=== PATIENT | male | born 1935 | race Caucasian/White ===

== ENCOUNTER 2016-03-07 12:17 | Day surgery (SDC) | payer MEDICARE ==
[2016-03-07] VITALS (7 sets, daily range): BP systolic 120–130; BP diastolic 72–76; PULSE 68–78; RESP 12–16; O2SAT 95–98
[~2016-03-07] VITALS: Ht 177.8 cm; Wt 85.3 kg
[~2016-03-07 12:17] MED LIST: CeFAZolin 2 Gm/50 mL D5W IV Premix IV ONE; Lactated Ringer's 1,000 ML IV ONE; METF500T4 PO; SIMV40TA5 PO
[2016-03-07] MEDS ORDERED: Propofol 10,000 mCg/mL 20 mL Inj ONE (12:18)
[2016-03-07] MEDS ORDERED: CeFAZolin 2 Gm/50 mL D5W Duplex Bag IV ONE (12:18)
[2016-03-07] MEDS ORDERED: fentaNYL-PF 50 mCg/mL 2 mL Inj ONE (12:18)
[2016-03-07] MEDS ORDERED: Ondansetron 2 mg/mL 2 mL Inj ONE (12:18)
[2016-03-07] MEDS ORDERED: Lactated Ringer's 1,000 ML IV SCH (13:53)
[2016-03-07] MEDS ORDERED: Lactated Ringer's 500 ML IV PRN (13:53)
[2016-03-07] MEDS ORDERED: Dexamethasone 4 mg/mL Inj IVPUSH PRN (13:55)
[2016-03-07] MEDS ORDERED: HYDROmorphone 1 mg/mL Inj IVPUSH PRN (13:55)
[2016-03-07] MEDS ORDERED: MetoCLOpramide 5 mg/mL 2 mL Inj IVPUSH PRN (13:55)
[2016-03-07] MEDS ORDERED: Ondansetron 2 mg/mL 2 mL Inj IVPUSH PRN (13:55)
[2016-03-07] MEDS ORDERED: fentaNYL-PF 50 mCg/mL 2 mL Inj IVPUSH PRN (13:55)
[2016-03-07] MEDS ORDERED: Phenylephrine 10,000 mCg/mL Inj IVPUSH PRN (13:55)
[2016-03-07] MEDS ORDERED: EPHEDrine Sulfate 50 mg/mL Inj IVPUSH PRN (13:55)
[2016-03-07] MEDS ORDERED: HYDROcodone-APAP 5-325 mg Tablet PO PRN (14:40)
--- NOTE | 2016-03-07 15:12 | PCM.HPANE ---
Patient Data Surgeon Admitting Provider: Attending Provider:Nan Rodgers MD Primary Care Physician:Singh Overton MD Other Provider:[facility] Reason for Visit Gross Hematuria Ht/WT & BMI Height (Feet): 5 Height (Inches): 10 Weight (Kilograms): 84 Body Mass Index 26.00 Allergies Coded Allergies: No Known Allergies (Unverified , 03/07/16) Diabetes History Hx Diabetes?: Yes Type of Diabetes: Type II Glycemic Control: Oral Medication Medications Hypertension Medication: Yes Home Meds Incl Beta Delfino: Yes Reported Medications Simvastatin 40 Mg [id number] Mg PO HS 30 Days Ref 0 03/04/16 Metformin 500 Mg [id number] Mg PO BID Ref 0 03/04/16 History History of ENT Problems?: No Hx of Heart Problems?: No Hx of Respiratory Problem?: No Respiratory History: Denies:: Oxygen Administration Use of C-PAP Machine Hx Neurologic Problems?: No Hx of GI Problems?: No Hx of Problems?: Yes Other Pertinent History: hematuria, bladder neck tumor current admission problem Male Hx: Denies:: Prostate Problems Hx Musculoskeletal Problems?: No Hx of Psycho/Social Problems?: No Hx Surgeries?: No (unknown) Hx Any Other Health Problems?: No Other History: Denies:: Cancer Thyroid Disease Hx Diabetes: Yes Hx Substance Use: No Stop/Bang S-Snoring: Do You Snore Loudly: No T-Tired: feel tired, fatigued: No O-Obsered: Observed not breath: No P-Blood Pressure: treated: No B- Body Mass Index > 35 kg/m2: No A- Age over 50: Yes N- Neck Large Circumference: No G- Gender Male: Yes LUIS Total Score: 2 Risk Assessment Category Category 1A: Patient has history of documented sleep apnea, and HAS NOT received any narcotic, sedative or anesthesia administration during this stay. Category 1B: Patient has history of documented sleep apnea, and HAS received any narcotic , sedative or anesthesia administration during this stay Category 2: Patient has SUSPECTED Obstructive Sleep Apnea, and HAS received any narcotic , sedative or anesthesia administration during this stay. Category 3: Patient has SUSPECTED Obstructive Sleep Apnea and HAS NOT received narcotic, sedative or anesthesia administration during this stay. Category 4: Outpatient in Procedural Areas with known sleep apnea or who screen positive for High Risk via the STOP/BANG questionnaire. Exam Exam General Appearance: Alert, Oriented X3, Cooperative, No Acute Distress HEENT/AIRWAY: MP 2 Lungs: Clear to Auscultation Heart: Exam Unremarkable Plan Impression Patient chart reviewed, patient interviewed and anesthestic plan with risks, benefits, and alternatives discussed, and informed consent obtained. ASA Physical Status: ASA2 Mod Systemic Disease Anesthetic Plan: GA Bene/Risks/Altern/Consents: Yes HP Complete Prior to Induction: Yes Ricardo Rodriguez MD Mar 07, 2016 07:18
--- NOTE | 2016-03-07 15:13 | PCM.ANEP1 ---
Post Anesthesia Phase 1 PACU Phase 1 Assessment Vital Signs Vital Signs Date Time Temp Pulse Resp B/P Pulse Ox O2 Delivery O2 Flow Rate FiO2 03/07/16 15:00 71 12 126/73 95 Room Air 03/07/16 14:55 73 13 123/72 95 Room Air 03/07/16 14:50 73 15 120/74 95 Room Air 03/07/16 14:43 36.8 78 12 130/73 96 Room Air 03/07/16 12:42 36 68 16 124/72 98 Room Air Anesthetic Administered: GA Level of Alertness: Sleepy, easy to arouse SANFORD's with Equal Strength: Yes Pain: No Nausea or Vomiting: No Oxygen Delivery: Room Air Lungs: Clear to Auscultation Dermatome Level: Full Sensation Ricardo Rodriguez MD Mar 07, 2016 15:13
--- NOTE | 2016-03-07 15:14 | PCM.ANEP2 ---
Post Anesthesia Evaluation ASA/CMS Post Anesthesia VS in Patient's Normal Range?: Yes Resp Stable; Airway Patent?: Yes CV Function & Hydration Stable: Yes Mental Status Recovered?: Yes Pain control Satisfactory?: Yes N/V Control Satisfactory?: Yes Ricardo Rodriguez MD Mar 07, 2016 15:14
--- NOTE | 2016-03-08 02:19 | OP ---
[address] [address] OPERATIVE REPORT PATIENT: RAUL MATOS : 1935 MR#: [id number] ADMIT: 03/07/2016 JOB ID: [id number] DATE OF SURGERY: 03/07/2016 PREOPERATIVE DIAGNOSIS(ES): Bladder tumors. POSTOPERATIVE DIAGNOSIS(ES): Bladder tumors. PROCEDURE PERFORMED: 1. Pelvic exam under anesthesia. 2. Cystoscopy and panendoscopy. 3. TURBT (4 cm). 4. Transurethral resection of prostate. SURGEON: Nan Rodgers MD COSTING ANALYST: None. FINDINGS: 1. Pelvice exam reveals mobile bladder without fixed masses and smooth prostate without nodules. 2. A +2 trabeculated bladder. 3. Ureteral orifices in close proximity to the bladder neck, with the right ureteral orifice somewhat medially displaced. 4. Papillary bladder tumors surrounding almost the entire circumference of the bladder neck, with innumerable small papillary bladder tumors at the bladder base. ANESTHESIA: General. ESTIMATED BLOOD LOSS: Less than 5 mL. DRAINS: 18 coude Saavedra catheter to the bladder. SPECIMENS: 1. Bladder tumor. 2. Prostate chips. COMPLICATIONS: None. CONDITION: Stable. INDICATION FOR PROCEDURE: The patient is an 80-year-old gentleman who now presents for transurethral resection of bladder tumor after in-clinic cystoscopy demonstrated multiple bladder tumors. Given the proximity of the bladder tumors, that being at the bladder neck, the patient was consented for a transurethral resection of prostate for adequate staging. DESCRIPTION OF PROCEDURE: After informed consent was obtained, the patient was taken to the operating room. A time-out was performed, identifying correct patient, surgical site, and procedure. General anesthesia was smoothly induced. He was given intravenous antibiotics just prior to the start of procedure. He was placed in lithotomy position and all pressure points were identified and appropriately padded. A bimanual pelvic exam was performed. The findings were aforementioned. His genitals were then prepped and draped in the usual sterile fashion. A 22-Croatian cystoscope was then applied to the patient's urethra and advanced to the bladder. The bladder was drained. The bladder was systematically inspected with both 30 and 70 degree lenses. The entirety of the bladder base was quite hypervascular. The bladder neck was almost circumferentially involved with papillary tumor. The ureteral orifices took some time to identify because they were not in orthotopic position. The right ureteral orifice was in close proximity to the bladder neck and medially displaced. The left ureteral orifice was seen in a bit more orthotopic position, but it was also in close proximity to the bladder neck. The left ureteral orifice was not involved with tumor, though the right was. Just within the introitus of the ureteral orifice, there could be seen tumor there. Resection commenced along the base. Those papillary tumors were quite small and could simply be scraped off with a cold loop. The loop was then used to cauterize a good amount at the base given the involvement of the small papillary tumors there. Attention was then turned to the bladder neck and tumors were resected in piecemeal fashion around the circumference of the bladder neck. There was also seen a tumor involving the right ureteral orifice which was scraped off as well. The bladder tumor specimen was then removed through the resectoscope. Attention was then turned to the prostate. The Thunderbeat was then set to TURP settings. The prostate was then resected from the bladder neck to the proximal to the verumontanum working from the right lobe to the left lobe, and these were passed off the table as prostate chips to Pathology. The bladder was then drained and reinspected multiple times. Cautery was used in spot fashion for hemostasis. At the end of the procedure, there was excellent hemostasis. An 18-Croatian coude catheter was placed in the patient's bladder and set to dependent drainage. The patient was then reversed from general anesthesia and taken to the PACU in good and stable condition. BRENDA
--- NOTE | 2016-03-09 13:48 | PATH ---
SURGICAL PATHOLOGY Attending Physician:Nan Rodgers, CASE STATUS: Signed Out PATIENT NAME: RAUL MATOS PID: [id number] : 1935 DATE COLLECTED:03/07/2016 22:53 SPECIMEN: 1: Bladder, Biopsy 2: Prostate, Chips CLINICAL HISTORY: GROSS HEMATURIA *WOULD LIKE TO KNOW IF SPECIMEN FROM PROSTATE HAS BLADDER TUMOR PRESENT (BLADDER TUMOR WAS PRESENT MOSTLY AT BLADDER NECK-TURP DONE FOR STAGING) 1. BLADDER TUMOR 2. PROSTATE CHIPS FINAL DIAGNOSIS: 1. Transurethral Resection of Bladder Tumor: Papillary urothelial carcinoma high grade, focally invasive into lamina propria. Muscularis propria tissue present and negative for neoplasm. 2. Prostate Chips: Fragments of prostate tissue negative for malignancy. Pathologic stage of bladder tumor based on TUR: pT1, pNX. ICD10 C67.9 NOTE: Case reviewed by Dr. Garry Matos who agrees with the diagnosis. GROSS DESCRIPTION: The specimen is received in two formalin filled containers labeled with the patient's name. 1). Specimen a sublabeled "bladder tumor" and consists of multiple portions of tissue which aggregate to 1.5 x 1.5 x 0.3 CM. The specimen is filtered and entirely submitted in cassette 1A. 2). The specimen is sublabeled "prostate chips" and consists of multiple portions of pink-wheeler tissue which aggregate to 1.5 x 1.0 x 0.5 CM. The specimen is entirely submitted in cassette 2A. Specimen weighs 0.3 g in total. 03/07/2016 [facility] ICD-9 CODES: CPT CODES: 1: 86372 2: 09781 Electronically Signed Out Eliceo Robertson MD [facility] Pathology [facility] [address], [place] [address] Technical component performed at [facility], [facility] [address], [place], [address]
[2016-06-09] MEDS ORDERED: METF500T4 PO (15:37)
[2016-06-09] MEDS ORDERED: RANI150T11 PO (15:37)
[2016-06-09] MEDS ORDERED: SIMV20TA4 PO (15:37)
== END 2016-03-07 23:59 | disposition home or self-care (01) ==
LOC: SAS 12:17
PROVIDERS: ATTEND Urology
DX: C67.5 Malignant neoplasm of bladder neck (principal); N32.89 Other specified disorders of bladder; I10 Essential (primary) hypertension; E11.9 Type 2 diabetes mellitus without complications; Z79.84 Long term (current) use of oral hypoglycemic drugs
CPT/HCPCS: 52235; 52601; J0690; J2405; J7120

== ENCOUNTER 2016-06-13 05:36 | Day surgery (SDC) | payer MEDICARE ==
[2016-06-13] VITALS (8 sets, daily range): BP systolic 117–136; BP diastolic 71–87; PULSE 64–76; RESP 10–23; O2SAT 96–100
[~2016-06-13] VITALS: Ht 175.3 cm; Wt 89.0 kg
[~2016-06-13 05:36] MED LIST changes: -CeFAZolin 2 Gm/50 mL D5W IV Premix IV ONE; +RANI150T11 PO; +SIMV20TA4 PO; -SIMV40TA5 PO
[2016-06-13] MEDS ORDERED: Propofol 10,000 mCg/mL 20 mL Inj ONE (05:37)
[2016-06-13] MEDS ORDERED: Ondansetron 2 mg/mL 2 mL Inj ONE (05:37)
[2016-06-13] MEDS ORDERED: fentaNYL-PF 50 mCg/mL 2 mL Inj ONE (05:37)
[2016-06-13] MEDS ORDERED: LUTE20CA8 PO (06:00)
[2016-06-13] MEDS: CeFAZolin Inj 2 GM in IV Premix 1 EACH IV SCH ×2 (06:16→07:17)
--- NOTE | 2016-06-13 06:38 | PCM.HPANE ---
Patient Data Surgeon Admitting Provider: Attending Provider:Nan Rodgers MD Primary Care Physician:Singh Overton MD Other Provider:[facility] Reason for Visit Bladder Tumor Ht/WT & BMI Height (Feet): 5 Height (Inches): 9 Weight (Kilograms): 89 Body Mass Index 29.00 Allergies Coded Allergies: No Known Allergies (Unverified , 06/13/16) Past Anesthesia History Anesthesia History: Denies:: Abnormal Airway, Anesthesia Reactions, Difficult Intubation, Fam Anesthesia Reaction, Fam Malignant Hypertherm, Malignant Hyperthermia Diabetes History Hx Diabetes?: Yes Type of Diabetes: Type II Glycemic Control: Oral Medication Current Bedside Blood Glucose: 145 MRSA MRSA: No Medications Hypertension Medication: No Home Meds Incl Beta Delfino: No Reported Medications Lutein 20 Mg [id number] Mg PO BID 06/13/16 Ranitidine (Zantac)150 Mg [id number] Mg PO DAILY 06/09/16 Simvastatin 20 Mg Kmsfzp85 Mg PO HS Ref 0 06/09/16 Metformin 500 Mg [id number] Mg PO BID Ref 0 06/09/16 Discontinued Reported Medications Simvastatin 40 Mg Nbtyjr54 Mg PO HS 30 Days Ref 0 03/04/16 Metformin 500 Mg [id number] Mg PO BID Ref 0 03/04/16 History History of ENT Problems?: No HEENT History: Denies:: Abnormal Airway Cataracts Difficult Intubation Dysphagia Glaucoma Hearing Problem Sinus Problem TMJ Denture Type: Partial- Upper Partial- Lower Teeth Condition: Within Normal Limits Hx of Heart Problems?: No Cardiovascular History: Denies:: AICD Abdominal Aortic Aneurism Atrial Fibrillation Cardiac Surgery Chest Pain Congestive Heart Failure Coronary Artery Disease Edema Heart Murmur Hypertension Irregular Heartbeat Pacemaker Peripheral Vascular Rheumatic Fever Thrombophlebitis Valvular Heart Disease Hx of Respiratory Problem?: No Respiratory History: Denies:: Asthma COPD Emphysema Oxygen Administration Use of C-PAP Machine Hx Neurologic Problems?: No Hx of GI Problems?: No Hx of Problems?: Yes Genitourinary History: Denies:: Kidney Stones Urinary Tract Infection Other Pertinent History: bladder tumor current admission problem Male Hx: Positive for:: Prostate Problems (hx of staging TURP 02/2016) Hx Musculoskeletal Problems?: No Hx of Psycho/Social Problems?: No Hx Surgeries?: Yes (turbt, staging TURP) Hx Any Other Health Problems?: Yes Other History: Positive for:: Cancer (bladder tumor) Denies:: Thyroid Disease Hx Diabetes: YesBedside Blood Glucose: 145 Hx Substance Use: No Smoking Status: Never Smoker Have You Smoked inLast 12 mo: No Stop/Bang S-Snoring: Do You Snore Loudly: No T-Tired: feel tired, fatigued: No O-Obsered: Observed not breath: No P-Blood Pressure: treated: No B- Body Mass Index > 35 kg/m2: No A- Age over 50: Yes N- Neck Large Circumference: No G- Gender Male: Yes LUIS Total Score: 2 Risk Assessment Category Category 1A: Patient has history of documented sleep apnea, and HAS NOT received any narcotic, sedative or anesthesia administration during this stay. Category 1B: Patient has history of documented sleep apnea, and HAS received any narcotic , sedative or anesthesia administration during this stay Category 2: Patient has SUSPECTED Obstructive Sleep Apnea, and HAS received any narcotic , sedative or anesthesia administration during this stay. Category 3: Patient has SUSPECTED Obstructive Sleep Apnea and HAS NOT received narcotic, sedative or anesthesia administration during this stay. Category 4: Outpatient in Procedural Areas with known sleep apnea or who screen positive for High Risk via the STOP/BANG questionnaire. Exam Exam Vital Signs Vital Signs Date Time Temp Pulse Resp B/P Pulse Ox O2 Delivery O2 Flow Rate FiO2 06/13/16 06:04 36.7 76 16 124/76 97 Room Air General Appearance: Alert, Oriented X3, Cooperative, No Acute Distress HEENT/AIRWAY: MP 2, Neck Movement (50% expected ROM), Mouth Opening (wnl) Lungs: Clear to Auscultation Heart: Exam Unremarkable Meds/Labs/Diagnostics Admission Meds Current Medications Cefazolin Sodium/ Dextrose 2 gm/ Premix 50 ml @ 100 mls/hr PREOP IV Last administered on 06/13/16 06:16; Start 06/13/16 at 06:00; Stop 06/13/16 at 19:00 Lactated Ringer's (Lr) 1,000 ml @ 120 mls/hr [id number] ONCE IV Last administered on 06/13/16 06:16; Start 06/13/16 at 05:00; Stop 06/13/16 at 13:19 Bedside Blood Glucose: 145 Plan Impression Patient chart reviewed, patient interviewed and anesthestic plan with risks, benefits, and alternatives discussed, and informed consent obtained. ASA Physical Status: ASA2 Mod Systemic Disease Anesthetic Plan: GA Bene/Risks/Altern/Consents: Yes HP Complete Prior to Induction: Yes Jc Burch MD June 13, 2016 06:38
[2016-06-13] MEDS ORDERED: Lactated Ringer's 1,000 ML IV SCH (07:23)
[2016-06-13] MEDS ORDERED: Lactated Ringer's 500 ML IV PRN (07:23)
[2016-06-13] MEDS ORDERED: HYDROmorphone 1 mg/mL Inj IVPUSH PRN (07:25)
[2016-06-13] MEDS ORDERED: Labetalol 5 mg/mL 4 mL Inj IV PRN (07:25)
[2016-06-13] MEDS ORDERED: Phenylephrine 10,000 mCg/mL Inj IVPUSH PRN (07:25)
[2016-06-13] MEDS ORDERED: Dexamethasone 4 mg/mL Inj IVPUSH PRN (07:25)
[2016-06-13] MEDS ORDERED: Ondansetron 2 mg/mL 2 mL Inj IVPUSH PRN (07:25)
[2016-06-13] MEDS ORDERED: EPHEDrine Sulfate 50 mg/mL Inj IVPUSH PRN (07:25)
[2016-06-13] MEDS ORDERED: hydrALAZINE 20 mg/mL Inj IVPUSH PRN (07:25)
[2016-06-13] MEDS ORDERED: Atropine 0.4 mg/mL Inj IVPUSH PRN (07:25)
[2016-06-13] MEDS ORDERED: fentaNYL-PF 50 mCg/mL 2 mL Inj IVPUSH PRN (07:25)
[2016-06-13] MEDS ORDERED: HYDROcodone-APAP 5-325 mg Tablet PO PRN (08:30)
--- NOTE | 2016-06-13 08:46 | PCM.ANEP1 ---
Post Anesthesia Phase 1 PACU Phase 1 Assessment Vital Signs Vital Signs Date Time Temp Pulse Resp B/P Pulse Ox O2 Delivery O2 Flow Rate FiO2 06/13/16 08:40 64 10 118/71 96 Room Air 06/13/16 08:30 36.8 65 12 120/71 97 Room Air 06/13/16 08:25 66 11 119/72 96 Room Air 06/13/16 08:20 68 12 117/76 97 Room Air 06/13/16 08:15 68 13 122/73 99 Simple Mask 8 06/13/16 08:09 37.0 65 12 122/77 100 Simple Mask 8 06/13/16 06:04 36.7 76 16 124/76 97 Room Air Anesthetic Administered: GA Level of Alertness: Awake, talking SANFORD's with Equal Strength: Yes Pain: No Nausea or Vomiting: No Cardiovascular Function and Hy: Yes Oxygen Delivery: Simple Mask Lungs: Normal Air Movement Complications: No Follow up Care: No Jc Burch MD June 13, 2016 08:46
--- NOTE | 2016-06-13 18:35 | OP ---
[address] [address] OPERATIVE REPORT PATIENT: RAUL MATOS : 1935 MR#: [id number] ADMIT: 06/13/2016 JOB ID: [id number] DATE OF SURGERY: 06/13/2016 PREOPERATIVE DIAGNOSIS(ES): History of bladder cancer. POSTOPERATIVE DIAGNOSIS(ES): History of bladder cancer. PROCEDURE PERFORMED: Cystoscopy and bladder biopsy. SURGEON: Nan Rodgers MD. STOCKHOLDER: None. FINDINGS: 1. No grossly recurrent papillary bladder tumors. 2. Very mildly erythematous, 2 cm patch at the posterior bladder, closer to the base. ANESTHESIA: General. ESTIMATED BLOOD LOSS: Less than 2 mL. DRAINS: None. SPECIMENS: Bladder biopsies. COMPLICATIONS: None. CONDITION: Stable. INDICATIONS FOR PROCEDURE: The patient is an 80-year-old man with a history of bladder cancer. He is status post BCG induction. He now presents for bladder biopsy. DESCRIPTION OF THE PROCEDURE: After informed consent was obtained, the patient was taken to the operating room. A time-out was performed identifying correct patient, surgical site, and procedure. General anesthesia was smoothly induced. He was placed in lithotomy position. All pressure points were identified and appropriately padded. His genitals were then prepped and draped in the usual sterile fashion. He was given intravenous antibiotics just prior to the start of procedure. The 22-Maltese rigid cystoscope was applied to patient's urethra and advanced to the bladder. Bladder was drained. The bladder was systematically surveyed with both 30- and 70-degree lenses. There was no grossly recurrent tumor. There was a very mildly erythematous patch at the posterior bladder base, and this area was sampled in a couple of areas, as well as lateral to it. These bladder biopsies were sent off to Pathology as bladder biopsies. Next, Bugbee electrode was used to cauterize the biopsy sites. The bladder was drained. It was reinspected and there was no bleeding. The patient was then reversed from general anesthesia and taken to PACU in stable condition. [facility]ITAL[facility]mber
--- NOTE | 2016-06-17 14:31 | PATH ---
SURGICAL PATHOLOGY Attending Physician:Nan Rodgers, CASE STATUS: Signed Out PATIENT NAME: RAUL MATOS PID: [id number] : 1935 DATE COLLECTED:06/13/2016 17:44 SPECIMEN: Bladder, Biopsy CLINICAL HISTORY: BLADDER TUMOR 1). MULTIPLE BLADDER BIOPSIES FINAL DIAGNOSIS: Multiple Bladder Biopsies: Portions of bladder wall with granulomatous inflammation. Negative for urothelial dysplasia and neoplasia. Negative for fungal and acid-fast organisms by PAS and AFB stains; the control tissue stained appropriately. ICD10: Z85.51 GROSS DESCRIPTION: The specimen is received in one formalin filled container labeled with the patient's name, labeled "multiple bladder biopsy" and consists of 3 portions of tissue which aggregate to 0.3 x 0.3 x 0.2 CM. The specimen is entirely submitted in one cassette. 06/13/2016 [facility] ICD-9 CODES: CPT CODES: 1: 65322, 73316, 77737 Electronically Signed Out Nan Bonilla MD [facility] [address], [place] [address] Technical component performed at [facility], [address] [place] [address] Ave[address], [place], [address]
== END 2016-06-13 23:59 | disposition home or self-care (01) ==
LOC: SAS 05:36
PROVIDERS: ATTEND Urology
DX: Z85.51 Personal history of malignant neoplasm of bladder (principal); E11.9 Type 2 diabetes mellitus without complications; Z79.84 Long term (current) use of oral hypoglycemic drugs
CPT/HCPCS: 52204; J0690; J2405; J3010; J7120